=== PATIENT | female | born 1960 | race African-American/Black ===

== ENCOUNTER 2019-03-15 20:27 | Emergency (ER) | payer SELFPAY ==
[~2019-03-15] VITALS: Ht 160 cm; Wt 59.0 kg
[2019-03-15 23:24] LABS: CLARITY URINE CLOUDY (CLEAR); COLOR URINE YELLOW (YELLOW); KETONES URINE NEGATIVE (NEGATIVE); LEUKOCYTE ESTERASE URINE 1+ (NEGATIVE); NITRITE URINE NEGATIVE (NEGATIVE); OCCULT BLOOD URINE NEGATIVE (NEGATIVE); PROTEIN URINE NEGATIVE (NEGATIVE); SPECIFIC GRAVITY URINE 1.023 (1.005-1.030)
[2019-03-16 02:00] VITALS: BP 108/69
[2019-03-16] MEDS ORDERED: ACETAMINOPHEN 325MG TABLET PO ONE (02:30)
[2019-03-16] MEDS ORDERED: POLYETHYLENE GLYCOL 3350 (17GM) 1 DOSE PACK PO ONE (03:00)
== END 2019-03-16 03:35 | disposition home or self-care (01) ==
LOC: ER 20:27
DX: R30.0 Dysuria (principal); N39.498 Other specified urinary incontinence; R82.998 Other abnormal findings in urine; R03.0 Elevated blood-pressure reading, without diagnosis of hypertension; Z91.81 History of falling; Z99.3 Dependence on wheelchair
CPT/HCPCS: 81003; 87077; 87086; 87186; 99283; Z7610